=== PATIENT | male | born 1950 | race African-American/Black ===

== ENCOUNTER 2019-02-22 13:16 | Inpatient (IN) | payer OTHER ==
[~2019-02-22] VITALS: Ht 180.3 cm; Wt 80.7 kg
[2019-02-22] MEDS ORDERED: ZESTRIL40 M1 PO (14:02)
[2019-03-10] MEDS ORDERED: HumaLOG 100 UNIT/1 M SUBCUTANEO (18:42)
[2019-03-10] MEDS ORDERED: TRAM1TAB98 PO (18:42)
[2019-03-10] MEDS ORDERED: Lantus 1000 UNITS/10 SUBCUTANEO (18:42)
[2019-03-10] MEDS ORDERED: DOXYCYCLINE HY100 M2 PO (18:42)
[2019-03-10] MEDS ORDERED: PANTOPRAZOLE SO40 MG PO (18:42)
[2019-03-10] MEDS ORDERED: INTESTINEX680 M1 PO (18:42)
[2019-03-12] MEDS ORDERED: PROTONIX20 MG (18:01)
== END 2019-03-11 19:05 | disposition home or self-care (01) | DRG 570 ==
LOC: ER 13:16 → MEDJ 02-23 11:16
PROVIDERS: Specialist; ADMIT Internal Medicine
PROC: B246ZZZ Ultrasonography of Right and Left Heart (ICD-10-PCS; 2019-02-24)
PROC: 4A12X4Z Monitoring of Cardiac Electrical Activity, External Approach (ICD-10-PCS; 2019-02-24)
PROC: 8E0ZXY6 Isolation (ICD-10-PCS; 2019-02-24)
PROC: 0JBR0ZZ Excision of Left Foot Subcutaneous Tissue and Fascia, Open Approach (ICD-10-PCS; principal; 2019-02-24 16:00)
PROC: 3E0F7GC Introduction of Other Therapeutic Substance into Respiratory Tract, Via Natural or Artificial Opening (ICD-10-PCS; 2019-02-27)
PROC: 05HB33Z Insertion of Infusion Device into Right Basilic Vein, Percutaneous Approach (ICD-10-PCS; 2019-03-03)
PROC: CP1Z1ZZ Planar Nuclear Medicine Imaging of Musculoskeletal System, All using Technetium 99m (Tc-99m) (ICD-10-PCS; 2019-03-03)
PROC: BQ3MZZZ Magnetic Resonance Imaging (MRI) of Left Foot (ICD-10-PCS; 2019-03-05)
PROC: 0JBR0ZZ Excision of Left Foot Subcutaneous Tissue and Fascia, Open Approach (ICD-10-PCS; 2019-03-10)
DX: L03.116 Cellulitis of left lower limb (principal); A40.1 Sepsis due to streptococcus, group B; K63.1 Perforation of intestine (nontraumatic); N17.8 Other acute kidney failure; N39.0 Urinary tract infection, site not specified; I96 Gangrene, not elsewhere classified; E11.52 Type 2 diabetes mellitus with diabetic peripheral angiopathy with gangrene; E11.65 Type 2 diabetes mellitus with hyperglycemia; E86.0 Dehydration; I48.0 Paroxysmal atrial fibrillation; R09.02 Hypoxemia; B95.1 Streptococcus, group B, as the cause of diseases classified elsewhere; B95.2 Enterococcus as the cause of diseases classified elsewhere; I13.10 Hypertensive heart and chronic kidney disease without heart failure, with stage 1 through stage 4 chronic kidney disease, or unspecified chronic kidney disease; N18.9 Chronic kidney disease, unspecified

== ENCOUNTER → 2019-03-12 | Emergency (ER) | payer OTHER ==
[~2019-03-12] VITALS: Ht 188 cm; Wt 81.6 kg
[~2019-03-12] MED LIST: DOXYCYCLINE HY100 M2 PO; HumaLOG 100 UNIT/1 M SUBCUTANEO; INTESTINEX680 M1 PO; Lantus 1000 UNITS/10 SUBCUTANEO; PANTOPRAZOLE SO40 MG PO; PROTONIX20 MG; TRAM1TAB98 PO; ZESTRIL40 M1 PO
== END | disposition home or self-care (01) ==
LOC: ER 17:03
DX: E11.649 Type 2 diabetes mellitus with hypoglycemia without coma (principal)

== ENCOUNTER 2019-04-09 16:48 | Inpatient (IN) | payer OTHER ==
[~2019-04-09] VITALS: Ht 185.4 cm; Wt 76.2 kg
[2019-04-09] MEDS ORDERED: PROTONIX40 M1 (17:51)
[2019-04-09] MEDS ORDERED: TRAMADOL-ACETAMINOPH (17:53)
[2019-04-09] MEDS ORDERED: LISINOPRIL40 MG (17:54)
[2019-04-20] MEDS ORDERED: ULTRACET (11:21)
[2019-04-26] MEDS ORDERED: AMIODARONE HCL200 MG PO (16:25)
[2019-04-26] MEDS ORDERED: LOPRESSOR25 MG PO (16:25)
[2019-04-26] MEDS ORDERED: PANTOPRAZOLE SO40 MG PO (16:25)
[2019-04-26] MEDS ORDERED: FOLIC ACID1 MG PO (16:25)
[2019-04-26] MEDS ORDERED: Neurin-Sl Tablet Sl SL (16:25)
[2019-04-26] MEDS ORDERED: FAMOTIDINE20 MG PO (16:25)
== END 2019-04-26 18:02 | disposition home or self-care (01) | DRG 673 ==
LOC: ER 16:48 → SEC-K 04-10 14:56 → MEDJ 04-10 14:56
PROVIDERS: ADMIT Internal Medicine
PROC: 4A12X4Z Monitoring of Cardiac Electrical Activity, External Approach (ICD-10-PCS; 2019-04-10)
PROC: 0T9B70Z Drainage of Bladder with Drainage Device, Via Natural or Artificial Opening (ICD-10-PCS; 2019-04-10)
PROC: 05H533Z Insertion of Infusion Device into Right Subclavian Vein, Percutaneous Approach (ICD-10-PCS; 2019-04-12)
PROC: 5A1D70Z Performance of Urinary Filtration, Intermittent, Less than 6 Hours Per Day (ICD-10-PCS; 2019-04-12)
PROC: 30233N1 Transfusion of Nonautologous Red Blood Cells into Peripheral Vein, Percutaneous Approach (ICD-10-PCS; 2019-04-12)
PROC: 4A033R1 Measurement of Arterial Saturation, Peripheral, Percutaneous Approach (ICD-10-PCS; 2019-04-14)
PROC: 3E0F7GC Introduction of Other Therapeutic Substance into Respiratory Tract, Via Natural or Artificial Opening (ICD-10-PCS; 2019-04-15)
PROC: B54DZZZ Ultrasonography of Bilateral Lower Extremity Veins (ICD-10-PCS; 2019-04-16)
PROC: CB121ZZ Planar Nuclear Medicine Imaging of Lungs and Bronchi using Technetium 99m (Tc-99m) (ICD-10-PCS; 2019-04-16)
PROC: B34KZZZ Ultrasonography of Bilateral Upper Extremity Arteries (ICD-10-PCS; 2019-04-19)
PROC: 0JHD3XZ Insertion of Tunneled Vascular Access Device into Right Upper Arm Subcutaneous Tissue and Fascia, Percutaneous Approach (ICD-10-PCS; 2019-04-20)
PROC: 0JBR0ZZ Excision of Left Foot Subcutaneous Tissue and Fascia, Open Approach (ICD-10-PCS; principal; 2019-04-26)
DX: N17.8 Other acute kidney failure (principal); J18.1 Lobar pneumonia, unspecified organism; E11.52 Type 2 diabetes mellitus with diabetic peripheral angiopathy with gangrene; I96 Gangrene, not elsewhere classified; J91.8 Pleural effusion in other conditions classified elsewhere; E11.22 Type 2 diabetes mellitus with diabetic chronic kidney disease; L97.522 Non-pressure chronic ulcer of other part of left foot with fat layer exposed; I12.9 Hypertensive chronic kidney disease with stage 1 through stage 4 chronic kidney disease, or unspecified chronic kidney disease; I25.10 Atherosclerotic heart disease of native coronary artery without angina pectoris; E11.65 Type 2 diabetes mellitus with hyperglycemia; E11.621 Type 2 diabetes mellitus with foot ulcer; I48.0 Paroxysmal atrial fibrillation; N18.6 End stage renal disease; N39.8 Other specified disorders of urinary system; R31.0 Gross hematuria; D63.1 Anemia in chronic kidney disease; R09.02 Hypoxemia; R63.0 Anorexia; E86.0 Dehydration; E87.8 Other disorders of electrolyte and fluid balance, not elsewhere classified; Z79.01 Long term (current) use of anticoagulants; Z79.4 Long term (current) use of insulin; Z99.2 Dependence on renal dialysis

== ENCOUNTER 2019-10-07 15:42 | Emergency (ER) | payer OTHER ==
[~2019-10-07] VITALS: Ht 180.3 cm; Wt 69.9 kg
[~2019-10-07 15:42] MED LIST changes: +AMIODARONE HCL200 MG PO; +FAMOTIDINE20 MG PO; +FOLIC ACID1 MG PO; +LISINOPRIL40 MG; +LOPRESSOR25 MG PO; +Neurin-Sl Tablet Sl SL; +PROTONIX40 M1; +TRAMADOL-ACETAMINOPH; +ULTRACET
[2019-10-07] MEDS ORDERED: LOPRESSOR25 MG PO (18:51)
[2019-10-07] MEDS ORDERED: AMIODARONE HCL200 MG PO (18:51)
== END 2019-10-07 19:24 | disposition home or self-care (01) ==
LOC: ER 15:42 → CPU-OBS 16:44 → ER 16:44
DX: I47.1 Supraventricular tachycardia (principal); R07.89 Other chest pain; I10 Essential (primary) hypertension

== ENCOUNTER 2021-12-22 21:13 | Emergency (ER) | payer OTHER ==
[~2021-12-22] VITALS: Ht 180.3 cm; Wt 68.0 kg
[2021-12-22] MEDS ORDERED: LISINOPRIL10 MG PO (21:36)
[2021-12-22] MEDS ORDERED: RENO CAPS SOFTGE1 MG PO (21:36)
[2021-12-22] MEDS ORDERED: ATORVASTATIN CA20 MG PO (21:37)
[2021-12-22] MEDS ORDERED: CARVEDILOL25 M1 PO (21:37)
== END 2021-12-23 00:11 | disposition home or self-care (01) ==
LOC: ER 21:13
DX: K52.9 Noninfective gastroenteritis and colitis, unspecified (principal); N18.6 End stage renal disease; I10 Essential (primary) hypertension

== ENCOUNTER 2025-02-01 12:53 | Inpatient (IN) | payer OTHER ==
[~2025-02-01] VITALS: Ht 180.3 cm; Wt 68.0 kg
[~2025-02-01 12:53] MED LIST changes: +ATORVASTATIN CA20 MG PO; +CARVEDILOL25 M1 PO; +LISINOPRIL10 MG PO; +RENO CAPS SOFTGE1 MG PO
--- NOTE | 2025-02-01 13:24 | NUR ---
SE LLAMA A PACIENTE EL MISMO NO RESPONDE
[2025-02-01] MEDS ORDERED: ADULT LOW DOSE81 M1 PO (13:44)
[2025-02-01] MEDS ORDERED: DIALYVITE TABL1 EACH PO (13:45)
[2025-02-01] MEDS ORDERED: SEVELAMER CARB2.4 GM PO (13:45)
[2025-02-01] MEDS ORDERED: TRIPHROCAPS SOFT1 MG (13:45)
[2025-02-01] MEDS ORDERED: ATORVASTATIN CA40 MG (13:45)
[2025-02-01] MEDS ORDERED: ORTHO DF 3,7751 EACH (13:46)
--- NOTE | 2025-02-01 13:59 | NUR ---
PACIENTE ALERTA Y ORIENTADO X3, REFIERE TENER ULCERA EN PIE CURLY. SE MONITOREAN VS Y SE UBICA. PACIENTE DE , DR.LOPEZ REID Y DR. SIMI CALVO
[2025-02-01] MEDS ORDERED: FAMOtidine 10 MG/ML (4ML VIAL) IV ONE (16:45)
[2025-02-01] MEDS ORDERED: PIPERACILLIN/TAZOBACTAM SODIUM 2.25 GM VIAL IV ONE (16:45)
[2025-02-01 17:01] LABS: BASO % 0.7 % (0.1-1.2); EOS # 0.36 (0.04-0.54); EOS % 4.5 % (0.7-7.0); LYMPH # 0.99 (1.18-3.74); LYMPH % 12.3 % (19.3-53.1); MEAN PLATELET VOLUME 9.50 fl (9.4-12.4); MONO # 1.13 (0.24-0.82); NEUT # 5.46 (1.56-6.13); NEUT % 68.0 % (34.0-71.1); RED CELL DISTRIBUTION WIDTH 12.2 % (11.6-14.4)
[2025-02-01 17:02] LABS: MONO % 14.1 % (4.7-12.5)
[2025-02-01 17:04] LABS: ERYTHROCYTE SEDIMENTATION RATE 85 mm/hr (0-20)
[2025-02-01 17:28] LABS: INR 1.24
[2025-02-01 17:30] LABS: ALT/SGPT 19.0 U/L (12-78); AST/SGOT 13.0 U/L (15-37); BILIRUBIN TOTAL 0.28 mg/dL (0.3-1.2); GLOBULINA 4.6 G/DL (2.4-3.5); GLUCOSE FASTING 93.0 mg/dL (65-100); OSMOLALITY SERUM 284.0 MOSM/KG (275-295)
[2025-02-01 17:50] LABS: BUN CREA RATIO 6.0 (7.0-25.0); GFR 5.61
[2025-02-01 17:52] LABS: CREATININE SERUM 9.26 mg/dL (0.70-1.30)
[2025-02-01] MEDS ORDERED: 0.9 % SODIUM CHLORIDE 1,000 ML IV SCH (18:00)
[2025-02-01] MEDS ORDERED: ACETAMINOPHEN 500 MG GEL..CAP PO PRN (18:15)
--- NOTE | 2025-02-01 18:35 | NUR ---
PACIENTE EVALUADA POR DRA CHANCE. SE ORIENTA A PACIENTE SOBRE ORDENES MEDICAS. SE COLECTAN MUESTRAS DE LABORATORIO BAJO MEDIDAS ASEPTICAS. SE CANALIZA A PACIENTE Y SE ADMINISTRAN MEDICAMENTOS DIXIE ORDEN MEDICA. PTE MANEJADO POR OCTAVIO CHANCE.
[2025-02-01 18:51] LABS: URINE APPEARANCE Clear; URINE BILIRRUBIN Negative (NEGATIVE); URINE BLOOD Trace; URINE COLOR Yellow; URINE GLUCOSE Negative (NEGATIVE); URINE KETONE Negative (NEGATIVE); URINE LEUKOCYTE Trace; URINE NITRATE Negative; URINE UROBILINOGEN 0.2 E.U./dl
[2025-02-01 18:54] LABS: URINE PROTEIN 300 (NEGATIVE)
[2025-02-01 19:05] LABS: URINE BACTERIA 9.5 uL (0.0-1933); URINE RBC 10.1 uL (0.0-20.8); URINE WBC 20.9 uL (0.0-23.2)
[2025-02-01 19:06] LABS: URINE CAST 0.00 uL (0.0-1.40); URINE EPITHELIAL CELLS 1.3 uL (0.0-38.8)
[2025-02-01 23:28] LABS: COVID-19 AG NEGATIVE (NEGATIVE)
[2025-02-02] MEDS ORDERED: PIPERACILLIN/TAZOBACTAM SODIUM 2.25 GM in 0.9 % SODIUM CHLORIDE 50 ML IV SCH (01:00)
[2025-02-02 03:21] VITALS: BP 174/52; O2SAT 96
[2025-02-02 08:55] VITALS: BP 116/65; BP 180/98; O2SAT 98; O2SAT 99
[2025-02-02] MEDS ORDERED: CARVEDILOL 12.5 MG TABLET PO SCH (09:00)
[2025-02-02] MEDS ORDERED: ATORVASTATIN CALCIUM 40 MG TABLET PO SCH (09:00)
[2025-02-02] MEDS ORDERED: AMLODIPINE BESYLATE 5 MG TABLET PO SCH (17:00)
[2025-02-02] MEDS ORDERED: LINEZOLID 600 MG TABLET PO SCH (17:00)
[2025-02-02 17:56] VITALS: BP 153/58; O2SAT 98
[2025-02-03 02:19] VITALS: BP 151/63; O2SAT 96
[2025-02-03 10:40] VITALS: BP 143/62; O2SAT 98
[2025-02-03] MEDS ORDERED: VANCOMYCIN HCL 1,000 MG VIAL IV NR (16:00)
[2025-02-03 17:06] VITALS: BP 138/59; O2SAT 99
[2025-02-04 02:12] VITALS: BP 134/62; O2SAT 96
[2025-02-04 06:39] LABS: BASO % 0.7 % (0.1-1.2); EOS # 0.62 (0.04-0.54); EOS % 7.5 % (0.7-7.0); LYMPH # 0.37 (1.18-3.74); LYMPH % 4.4 % (19.3-53.1); MEAN PLATELET VOLUME 9.90 fl (9.4-12.4); MONO # 0.96 (0.24-0.82); MONO % 11.5 % (4.7-12.5); NEUT # 6.27 (1.56-6.13); NEUT % 75.4 % (34.0-71.1); RED CELL DISTRIBUTION WIDTH 12.3 % (11.6-14.4)
[2025-02-04 07:26] LABS: ALT/SGPT 14.0 U/L (12-78); AST/SGOT 15.0 U/L (15-37); BILIRUBIN TOTAL 0.36 mg/dL (0.3-1.2); GLOBULINA 3.6 G/DL (2.4-3.5); GLUCOSE FASTING 82.0 mg/dL (65-100); OSMOLALITY SERUM 286.0 MOSM/KG (275-295)
[2025-02-04 08:03] LABS: BUN CREA RATIO 5.0 (7.0-25.0); GFR 5.02
[2025-02-04 08:04] LABS: CREATININE SERUM 10.2 mg/dL (0.70-1.30)
[2025-02-04 09:10] VITALS: BP 165/70; O2SAT 99
[2025-02-04 17:43] VITALS: BP 139/69; O2SAT 99
[2025-02-04] MEDS ORDERED: VANCOMYCIN HCL 500 MG VIAL IV SCH (21:00)
[2025-02-05 02:40] VITALS: BP 113/72; O2SAT 95
[2025-02-05 09:38] VITALS: BP 130/82
[2025-02-05 17:55] VITALS: BP 103/65
[2025-02-06 00:31] VITALS: BP 115/72
[2025-02-06 08:55] VITALS: BP 110/74; O2SAT 99
[2025-02-06 18:07] VITALS: BP 135/82; O2SAT 000
[2025-02-06] MEDS ORDERED: MELATONIN 5 MG TABLET PO SCH (21:00)
[2025-02-07 00:36] VITALS: BP 123/78
[2025-02-07 10:16] VITALS: BP 125/82; O2SAT 99
[2025-02-07] MEDS ORDERED: LIPITOR40 M1 PO (17:20)
[2025-02-07] MEDS ORDERED: AMLODIPINE BESYL5 MG PO (17:21)
[2025-02-07] MEDS ORDERED: CARVEDILOL12.5 MG PO (17:22)
[2025-02-07] MEDS ORDERED: LINEZOLID600 MG PO (17:24)
[2025-02-07 19:10] VITALS: BP 145/67
== END 2025-02-07 19:00 | disposition home or self-care (01) | DRG 579 ==
LOC: ER 12:53 → MEDI 18:39 → MEDJ 02-02 14:25
PROVIDERS: General Practice; Internal Medicine Infectious Disease; ADMIT Internal Medicine; ATTEND Internal Medicine
PROC: B44HZZZ Ultrasonography of Bilateral Lower Extremity Arteries (ICD-10-PCS; 2025-02-01)
PROC: 0JBN3ZZ Excision of Right Lower Leg Subcutaneous Tissue and Fascia, Percutaneous Approach (ICD-10-PCS; principal; 2025-02-02)
PROC: BQ3MZZZ Magnetic Resonance Imaging (MRI) of Left Foot (ICD-10-PCS; 2025-02-02)
DX: L97.528 Non-pressure chronic ulcer of other part of left foot with other specified severity (principal); N18.6 End stage renal disease; I12.0 Hypertensive chronic kidney disease with stage 5 chronic kidney disease or end stage renal disease; E11.621 Type 2 diabetes mellitus with foot ulcer; L08.89 Other specified local infections of the skin and subcutaneous tissue; E11.22 Type 2 diabetes mellitus with diabetic chronic kidney disease; B95.62 Methicillin resistant Staphylococcus aureus infection as the cause of diseases classified elsewhere